=== PATIENT | male | born 1950 | race Caucasian/White ===

== ENCOUNTER 2023-12-11 21:39 | Emergency (ER) | payer MEDICARE, MEDICAID ==
[~2023-12-11] VITALS: Ht 175.3 cm; Wt 79.8 kg
[2023-12-11 21:50] VITALS: PULSE 189; RESP 20
[2023-12-11] MEDS: PIPERACILLIN/TAZO 3.375G/50ML 50 ML IV ONE (23:00)
[2023-12-11] MEDS ORDERED: PHENYLEPHRINE 50 MG in DEXT 5% WATER 245 ML IV PRN (23:00)
[2023-12-11 23:06] LABS: BG BASE EXCESS -0.5 mmol/L (-2.0-2.0); BG CARBOXYHEMOGLOBIN 0.5 % (0.5-1.5); BG DEOXYHEMOGLOBIN 0.2 % (0.0-5.0); BG FRACTION INSPIRED OXYGEN 100; BG HCO3 ACT 30.2 mmol/L (22.0-26.0); BG METHEMOGLOBIN 0.4 % (0.0-1.5); BG OXYGEN SATURATION 99.8 % (92.0-98.5); BG OXYHEMOGLOBIN 98.9 % (94.0-97.0); BG PCO2 90.9 mmHg (35.0-45.0); BG PO2 417.6 mmHg (75.0-100.0); BG SAMPLE SITE RIGHT FEMORAL; BG TOTAL RESPIRATORY RATE 20 b/min; BG VENT MODE VENT - AC
[2023-12-11 23:09] VITALS: PULSE 135; RESP 24
[2023-12-11] MEDS: SODIUM CHLORIDE 0.9% 1000ML BAG (SEPSIS BOLUS) IV ONE (23:12)
[2023-12-11] MEDS: PANTOPRAZOLE SODIUM 40 MG/VIAL IV ONE (23:13)
[2023-12-11] MEDS: VANCOMYCIN 1G PREMIX 200 ML IV ONE (23:36)
[2023-12-11 23:39] LABS: HEMATOCRIT. 34.5 % (42.0-52.0); MEAN CORPUSCULAR HGB CONC 31.8 g/dL (31.0-37.0); MEAN CORPUSCULAR VOLUME 97.5 fL (80.0-94.0); MEAN PLATELET VOLUME 6.7 fl (7.4-10.4); PLATELET 268 x1000/uL (130-400); RED BLOOD CELL COUNT 3.54 mill/uL (4.7-6.1); RED CELL DISTRIBUTION WIDTH 15.4 % (11.6-14.6); WHITE BLOOD COUNT 33.8 x1000/uL (4.5-11.0)
[2023-12-11 23:40] LABS: DIFFERENTIAL COMMENT 1
[2023-12-11 23:46] LABS: CHLORIDE 107 mEq/L (98-107); POTASSIUM 4.8 mEq/L (3.5-5.1); SODIUM 146 mEq/L (136-145)
[2023-12-11 23:47] LABS: CARBON DIOXIDE 33 mEq/L (21-32)
[2023-12-11 23:48] LABS: CALCIUM 10.7 mg/dL (8.7-10.4); INR 1.2
[2023-12-11 23:52] LABS: CREATININE 1.1 mg/dL (0.6-1.3); GLUCOSE 151 mg/dL (70-105)
[2023-12-11 23:53] LABS: UREA NITROGEN BLOOD 23 mg/dL (9-23)
[2023-12-11 23:54] LABS: CREATINE KINASE 316 IU/L (46-171); LACTATE DEHYDROGENASE 273 IU/L (120-246); TROPONIN I HIGH SENSITIVITY 37 ng/L (3.0-53)
[2023-12-12 00:01] LABS: ETHANOL BLOOD < 10 mg/dL (<10)
[2023-12-12 00:02] LABS: CLARITY URINE CLOUDY (CLEAR); COLOR URINE YELLOW (YELLOW); GLUCOSE URINE NEGATIVE (NEGATIVE); KETONES URINE NEGATIVE (NEGATIVE); LEUKOCYTE ESTERASE URINE NEGATIVE (NEGATIVE); NITRITE URINE NEGATIVE (NEGATIVE); OCCULT BLOOD URINE 3+ (NEGATIVE); PROTEIN URINE 2+ (NEGATIVE); SPECIFIC GRAVITY URINE 1.015 (1.005-1.030)
[2023-12-12 00:06] LABS: LACTIC ACID 5.1 mmol/L (0.4-2.0)
[2023-12-12] MEDS: NOREPINEPHRINE 8 MG in DEXT 5% WATER 242 ML IV PRN (00:46)
[2023-12-12] MEDS: NOREPINEPHRINE 8MG/250ML PMX 250 ML IV ONE ×2 (00:46→01:04)
[2023-12-12] MEDS ORDERED: NOREPINEPHRINE 8MG/250ML PMX 250 ML IV ONE (03:09)
[2023-12-12 03:37] LABS: SQUAMOUS EPITHELIAL CELL URINE NONE SEEN /lpf (RARE/1+)
[2023-12-12 03:38] LABS: BACTERIA URINE NONE SEEN
[2023-12-12 04:25] VITALS: PULSE 117; RESP 24
[2023-12-12] MEDS ORDERED: SODIUM CHLORIDE 0.9% 1000ML BAG (SEPSIS BOLUS) IV ONE (04:45)
[2023-12-12 06:00] VITALS: BP 85/55; PULSE 133; RESP 32; TEMP 97.5
[2023-12-12] MEDS: PIPERACILLIN/TAZO 3.375G/50ML 50 ML IV SCH (06:00)
[2023-12-12] MEDS ORDERED: SODIUM BICARBONATE 8.4% 1 MEQ/ML 50ML SYR IV NR (06:45)
[2023-12-12 06:58] LABS: PLATELET ESTIMATE NORMAL
[2023-12-12] MEDS: NOREPINEPHRINE 32 MG in DEXT 5% WATER 218 ML IV PRN (07:06)
[2023-12-12] MEDS: INFLUENZA VACCINE 05/PF 0.5 ML SYRINGE IM ONE (07:07)
[2023-12-12 07:15] LABS: POTASSIUM 5.5 mEq/L (3.5-5.1)
[2023-12-12 07:17] LABS: CALCIUM 9.9 mg/dL (8.7-10.4)
[2023-12-12 07:39] LABS: HEMATOCRIT 37.9 % (42.0-52.0); MEAN CORPUSCULAR HEMOGLOBIN 30.8 pg (28.0-32.0); MEAN CORPUSCULAR HGB CONC 31.6 g/dL (31.0-37.0); MEAN CORPUSCULAR VOLUME 97.4 fL (80.0-94.0); PLATELET 326 x1000/uL (130-400); RED BLOOD CELL COUNT 3.89 mill/uL (4.7-6.1); RED CELL DISTRIBUTION WIDTH 15.8 % (11.6-14.6); WHITE BLOOD COUNT 33.2 x1000/uL (4.5-11.0)
[2023-12-12 08:51] LABS: CREATININE 1.7 mg/dL (0.6-1.3)
[2023-12-12] MEDS ORDERED: PIPERACILLIN/TAZO 3.375G/50ML 50 ML IV SCH (10:00)
== END 2023-12-12 03:25 | disposition admitted as inpatient to this hospital (09) ==
LOC: ER 21:39 → MICUSO 12-12 00:07 → UNDOADMIN 12-12 00:07 → UNDODISIN 12-12 07:25
DX: A41.9 Sepsis, unspecified organism (principal); I10 Essential (primary) hypertension; I46.9 Cardiac arrest, cause unspecified; E87.0 Hyperosmolality and hypernatremia
CPT/HCPCS: 80048 ×2; 81003; 80320; 82550; 83880; 83605 ×2; 83615; 83690; 85025; 85384; 85610; 86850; 86900; 86901; 87040; 87086; 84484 ×2; 36415 ×2; 84145; 71045 ×2; 82805; 82375; 31500 ×2; 93005; 36556; 96368; 96365; 99291; 36600; 85027; J3490 ×2; C9113; J2543; J3370; J7030; 94002; G0480